=== PATIENT | female | born 1955 | race African-American/Black ===

== ENCOUNTER 2022-11-23 05:00 | Emergency (ER) | payer OTHER ==
[~2022-11-23] VITALS: Ht 162.5 cm; Wt 95.3 kg
[~2022-11-23 05:00] MED LIST: AMBIEN10 MG PO; BACTRIM DS 8001 TA1 PO; BACTRIM DS 8001 TAB PO; BENADRYL25 M2 PO; CEPHALEXIN500 M1 PO; HYDROCODONE BIT1 T11 PO; KEFLEX500 MG PO; PERCOCET 325 MG1 TA2 PO; PERCOCET 325 MG1 TA7 PO; SEPTDS PO; VICODIN 5/500 505 MG PO
[2022-11-23 05:53] LABS: ALKALINE PHOSPHATASE 48 U/L (46-116); BUN 14 mg/dl (9-23); CHLORIDE 108 mmol/L (98-107); POTASSIUM 3.5 mmol/L (3.4-5.1); TOTAL PROTEIN 6.9 gm/dL (6.0-8.0)
[2022-11-23 05:57] LABS: BASO % 0.3 % (0.0-1.0); EOS # 0.4 10*3/uL (0.0-0.4); EOS % 3.7 % (1.0-4.0); HEMATOCRIT 22.7 % (37.0-47.0); LYMPH # 2.7 10*3/uL (1.3-4.4); LYMPH % 26.7 % (27.0-41.0); MEAN CELL VOLUME 75.4 fl (81.0-99.0); MEAN CORPUSCULAR HGB 24.6 pg (27.0-31.0); MEAN CORPUSCULAR HGB CONC 32.6 g/dl (33.0-37.0); MEAN PLATELET VOLUME 10.7 fl (9.6-12.3); MONO # 0.4 10*3/uL (0.1-1.0); MONO % 4.2 % (3.0-9.0); NEUT # 6.6 10*3/uL (2.3-7.9); NEUT % 63.9 % (47.0-73.0); PLATELET COUNT AUTOMATED 224 10*3/uL (130-400); RED BLOOD COUNT 3.01 10*6/uL (4.10-5.10); RED CELL DISTRI WIDTH 20.2 % (0-14.5); WHITE BLOOD COUNT 10.3 10*3/uL (4.8-10.8)
[2022-11-23 05:59] LABS: INTERNATIONAL NORM RATIO 4.5 (2.0-3.5); SGPT/ALT < 7 U/L (10-49)
== END 2022-11-23 10:17 | disposition home or self-care (01) ==
LOC: ED 05:00
PROVIDERS: Emergency Medicine
DX: K91.841 Postprocedural hemorrhage of a digestive system organ or structure following other procedure (principal); D62 Acute posthemorrhagic anemia

== ENCOUNTER 2023-04-11 14:55 | Emergency (ER) | payer OTHER ==
[~2023-04-11] VITALS: Ht 162.5 cm; Wt 90.7 kg
[2023-04-11 15:58] LABS: BASO % 0.2 % (0.0-1.0); EOS # 0.2 10*3/uL (0.0-0.4); EOS % 2.4 % (1.0-4.0); HEMATOCRIT 25.9 % (37.0-47.0); LYMPH # 2.3 10*3/uL (1.3-4.4); LYMPH % 22.4 % (27.0-41.0); MEAN CELL VOLUME 72.5 fl (81.0-99.0); MEAN CORPUSCULAR HGB 24.9 pg (27.0-31.0); MEAN CORPUSCULAR HGB CONC 34.4 g/dl (33.0-37.0); MEAN PLATELET VOLUME 10.2 fl (9.6-12.3); MONO # 0.4 10*3/uL (0.1-1.0); MONO % 4.3 % (3.0-9.0); NEUT # 7.1 10*3/uL (2.3-7.9); NEUT % 70.3 % (47.0-73.0); PLATELET COUNT AUTOMATED 270 10*3/uL (130-400); RED BLOOD COUNT 3.57 10*6/uL (4.10-5.10); RED CELL DISTRI WIDTH 20.6 % (0-14.5); WHITE BLOOD COUNT 10.1 10*3/uL (4.8-10.8)
[2023-04-11 16:07] LABS: INTERNATIONAL NORM RATIO 3.2 (2.0-3.5)
[2023-04-11 16:21] LABS: ALKALINE PHOSPHATASE 48 U/L (46-116); BUN 10 mg/dl (9-23); CHLORIDE 108 mmol/L (98-107); POTASSIUM 3.7 mmol/L (3.4-5.1); SGPT/ALT < 7 U/L (10-49); TOTAL PROTEIN 8.1 gm/dL (6.0-8.0)
[2023-04-11] MEDS ORDERED: SEPTDS PO (18:54)
== END 2023-04-11 18:54 | disposition home or self-care (01) ==
LOC: ED 14:55
PROVIDERS: Internal Medicine
DX: K61.1 Rectal abscess (principal); L02.91 Cutaneous abscess, unspecified

== ENCOUNTER 2023-07-12 04:44 | Emergency (ER) | payer OTHER ==
[~2023-07-12] VITALS: Ht 162.5 cm; Wt 90.3 kg
[2023-07-12 06:02] LABS: BASO % 0.4 % (0.0-1.0); EOS # 0.4 10*3/uL (0.0-0.4); EOS % 4.3 % (1.0-4.0); HEMATOCRIT 26.5 % (37.0-47.0); LYMPH # 1.8 10*3/uL (1.3-4.4); LYMPH % 21.3 % (27.0-41.0); MEAN CELL VOLUME 75.1 fl (81.0-99.0); MEAN CORPUSCULAR HGB 25.5 pg (27.0-31.0); MEAN PLATELET VOLUME 10.8 fl (9.6-12.3); MONO # 0.4 10*3/uL (0.1-1.0); MONO % 4.6 % (3.0-9.0); NEUT # 5.6 10*3/uL (2.3-7.9); NEUT % 67.7 % (47.0-73.0); PLATELET COUNT AUTOMATED 231 10*3/uL (130-400); RED BLOOD COUNT 3.53 10*6/uL (4.10-5.10); RED CELL DISTRI WIDTH 19.9 % (0-14.5); WHITE BLOOD COUNT 8.3 10*3/uL (4.8-10.8)
[2023-07-12 06:08] LABS: ALKALINE PHOSPHATASE 49 U/L (46-116); BUN 12 mg/dl (9-23); CHLORIDE 110 mmol/L (98-107); POTASSIUM 3.9 mmol/L (3.4-5.1); TOTAL PROTEIN 7.4 gm/dL (6.0-8.0)
[2023-07-12 06:10] LABS: SGPT/ALT < 7 U/L (5-49)
== END 2023-07-12 10:44 | disposition home or self-care (01) ==
LOC: ED 04:44
PROVIDERS: Internal Medicine
DX: Z03.89 Encounter for observation for other suspected diseases and conditions ruled out (principal); F17.200 Nicotine dependence, unspecified, uncomplicated; Z86.711 Personal history of pulmonary embolism; Z79.2 Long term (current) use of antibiotics; Z79.899 Other long term (current) drug therapy

== ENCOUNTER 2024-06-09 10:35 | Emergency (ER) | payer MEDICARE ==
[~2024-06-09] VITALS: Ht 6705 cm; Wt 99.8 kg
[~2024-06-09 10:35] MED LIST changes: +BENZONATATE100 M1 PO; +DECADRON4 MG PO; +IBU800 M1 PO; +SULFAMETHOXAZOLE-TMP PO; +VIBRAMYCIN HYC100 MG PO; +ZOLPIDEM TART5 MG PO
[2024-06-09 12:15] LABS: HEMATOCRIT 31.7 % (37.0-47.0); MEAN CELL VOLUME 77.3 fl (81.0-99.0); MEAN CORPUSCULAR HGB 26.1 pg (27.0-31.0); MEAN CORPUSCULAR HGB CONC 33.8 g/dl (33.0-37.0); MEAN PLATELET VOLUME 11.5 fl (9.6-12.3); PLATELET COUNT AUTOMATED 243 10*3/uL (130-400); RED CELL DISTRI WIDTH 19.3 % (0-14.5); WHITE BLOOD COUNT 10.2 10*3/uL (4.8-10.8)
[2024-06-09 12:36] LABS: POTASSIUM 3.7 mmol/L (3.4-5.1); TOTAL CELLS COUNTED 100 #CELLS; TOTAL PROTEIN 7.9 gm/dL (6.0-8.0)
[2024-06-09 12:37] LABS: MICROCYTOSIS SLIGHT; OVALOCYTES FEW; PLATELET SUFFICIENCY NORMAL (NORMAL); POLYCHROMASIA SLIGHT; TARGET CELLS FEW
[2024-06-09 12:38] LABS: MANUAL DIFF REFLEX YES
[2024-06-09] MEDS ORDERED: MIRALAX POWDER17 G1 PO (15:11)
== END 2024-06-09 15:02 | disposition home or self-care (01) ==
LOC: ED 10:35
PROVIDERS: Nurse Practitioner
DX: K59.00 Constipation, unspecified (principal); Z98.890 Other specified postprocedural states

== ENCOUNTER 2025-06-03 11:12 | Emergency (ER) | payer MEDICARE ==
[~2025-06-03 11:12] MED LIST changes: +MIRALAX POWDER17 G1 PO
[2025-06-03] MEDS ORDERED: diphenhydrAMINE hydrochloride 25 MG CAP PO ONE (11:35)
[2025-06-03] MEDS ORDERED: PREDNISONE10 M1 PO (11:35)
== END 2025-06-03 11:43 | disposition home or self-care (01) ==
LOC: ED 11:12
DX: T63.441A Toxic effect of venom of bees, accidental (unintentional), initial encounter (principal); L53.0 Toxic erythema; Z79.899 Other long term (current) drug therapy; Z98.890 Other specified postprocedural states; Z87.891 Personal history of nicotine dependence; Y92.89 Other specified places as the place of occurrence of the external cause